=== PATIENT | male | born 1965 | race African-American/Black ===

== ENCOUNTER 2024-06-22 14:51 | Inpatient (IN) | payer OTHER ==
[2024-06-22 15:50] VITALS: BMI 22.1
[2024-06-22] MEDS ORDERED: POLYETHYLENE GLYCOL (HEALTHYLAX) 3350 17 GM PACKET PO PRN (16:48)
[2024-06-22] MEDS ORDERED: guaiFENesin 600 MG TABLET.ER (FP) PO PRN (16:48)
[2024-06-22] MEDS ORDERED: NICOTINE POLACRILEX 2 MG GUM BUC PRN (16:48)
[2024-06-22] MEDS ORDERED: IBUPROFEN 600 MG TABLET (FP) PO PRN (16:48)
[2024-06-22] MEDS ORDERED: ACETAMINOPHEN 325 MG TABLET (FP) PO PRN (16:48)
[2024-06-22] MEDS ORDERED: NALOXONE (NARCAN) HCL 4 MG/0.1 ML SPRAY NS PRN (16:48)
[2024-06-22] MEDS ORDERED: LOPERAMIDE HCL 2 MG CAPSULE PO PRN (16:48)
[2024-06-22] MEDS ORDERED: BENZOCAINE/MENTHOL (CHLORASEPTIC ) LOZENGE MM PRN (16:48)
[2024-06-22] MEDS ORDERED: IBUPROFEN 400 MG TABLET (FP) PO PRN (16:48)
[2024-06-22] MEDS ORDERED: MAGNESIUM HYDROX 2400MG/30ML ORAL SUSPENSION 30 ML CUP PO PRN (16:48)
[2024-06-22] MEDS ORDERED: MAG HYDROX/AL HYDROX/SIMETH 30 ML UNIT-DOSE CUP PO PRN (16:48)
[2024-06-22] MEDS ORDERED: BENZONATATE 200 MG CAPSULE PO PRN (16:48)
[2024-06-22] MEDS: TUBERCULIN PPD 5 TU/0.1ML SYRINGE (IN PATIENT USE ONLY) ID ONE (19:03)
[2024-06-22] MEDS: MELATONIN 5 MG TABLETS PO SCH (22:21)
[2024-06-22] MEDS: THIAMINE 100 MG TABLET PO SCH (22:21)
[2024-06-23] MEDS: NICOTINE 21 MG/24 HOURS TOPICAL PATCH TD SCH (10:37)
[2024-06-23] MEDS: PRENATAL VITAMINS W/ FOLIC ACID TABLET (FP) PO SCH (10:37)
[2024-06-23 12:58] LABS: HEMATOCRIT 38.5 % (35.4-49); MCH 32.3 pg (25.7-33.7); MCHC 33.9 g/dl (32.0-35.9); MEAN CELL VOLUME 95.4 fl (80-96); MEAN PLT VOLUME 8.7 fl (7.5-11.1); PLATELET COUNT 231 10^3/uL (134-434); RBC 4.03 M/mm3 (4.00-5.60); WHITE BLOOD COUNT 4.6 K/mm3 (4.0-10.0)
[2024-06-23 12:59] LABS: CHLORIDE 112 mmol/L (98-107); POTASSIUM 3.9 mmol/L (3.5-5.1); SODIUM 142 mmol/L (136-145)
[2024-06-23 13:07] LABS: EPI CELLS 12 /uL (0-25.1); HYALINE CASTS 12 /uL (0-3.1); URINE APPEARANCE TURBID; URINE BACTERIA 2206 /uL (0-1359); URINE BILIRUBIN NEGATIVE (NEGATIVE); URINE COLOR YELLOW; URINE GLUCOSE (UA) NEGATIVE (NEGATIVE); URINE KETONE NEGATIVE (NEGATIVE); URINE LEUK ESTERASE 2+ (NEGATIVE); URINE NITRITE NEGATIVE (NEGATIVE); URINE PROTEIN TRACE (NEGATIVE); URINE WBC 705 /uL (0-25.8)
[2024-06-23 13:10] LABS: URINE RBC 17 /uL (0-23.9)
[2024-06-23 13:11] LABS: CALCIUM 8.8 mg/dL (8.5-10.1)
[2024-06-23 13:12] LABS: ALBUMIN 3.3 g/dl (3.4-5.0); ANION GAP 6 mmol/L (4-13); BLOOD UREA NITROGEN 11.5 mg/dL (7-18); CO2 25 mmol/L (21-32); GLUCOSE,RANDOM 92 mg/dL (74-106)
[2024-06-23 13:14] LABS: SGPT/ALT 26 U/L (13-61)
[2024-06-23 13:15] LABS: CREATININE 0.8 mg/dL (0.55-1.3); SGOT/AST 17 U/L (15-37)
[2024-06-23 13:16] LABS: BILIRUBIN,TOTAL 0.5 mg/dL (0.2-1); TOT PROT 6.7 g/dl (6.4-8.2)
[2024-06-23 13:17] LABS: ALK PHOS 83 U/L (45-117)
[2024-06-23 13:27] LABS: SYPHILIS W/ RPR CONF REACTIVE (NONREACTIVE)
[2024-06-23] MEDS: hydrOXYzine PAMOATE 25 MG CAPSULE (FP) PO PRN (21:36)
[2024-06-29] MEDS: PETROLATUM, WHITE 30 GM TUBE TP SCH (12:08)
[2024-06-29] MEDS: SULFAMETHOXAZOLE/TRIMETHOPRIM 800MG/160MG D.S. TABLET PO SCH (12:08)
[2024-06-29] MEDS: MELATONIN 5 MG TABLETS PO SCH (21:04)
[2024-07-06 06:44] VITALS: BP 118/65; PULSE 66; RESP 16; TEMP 97.8
[2024-07-06] MEDS: NALOXONE (NYS OPIOID OVERDOSE PROGRAM) 4 MG/0.1 ML SPRAY NS SCH (10:06)
== END 2024-07-06 10:42 | disposition home or self-care (01) | DRG 772 ==
LOC: YASAS 14:51 → Y3NR 17:14 → Y5N 06-25 11:43
PROVIDERS: ADMIT Allergy & Immunology; ATTEND Psychiatry & Neurology Pain Medicine
PROC: HZ42ZZZ Group Counseling for Substance Abuse Treatment, Cognitive-Behavioral (ICD-10-PCS; principal; 2024-06-22)
DX: F14.20 Cocaine dependence, uncomplicated (principal); F10.20 Alcohol dependence, uncomplicated; F17.210 Nicotine dependence, cigarettes, uncomplicated; L85.3 Xerosis cutis; N39.0 Urinary tract infection, site not specified
CPT/HCPCS: 36415; 80053; 80305; 80307; 81003; 85027; 86593; 86780; 86803; 87811; 93005; 93010

== ENCOUNTER 2025-03-16 13:12 | Inpatient (IN) | payer OTHER ==
[2025-03-16 13:43] VITALS: BMI 22.6
[2025-03-16] MEDS ORDERED: IBUPROFEN 400 MG TABLET (FP) PO PRN (15:35)
[2025-03-16] MEDS ORDERED: guaiFENesin 600 MG TABLET.ER (FP) PO PRN (15:35)
[2025-03-16] MEDS ORDERED: BENZONATATE 200 MG CAPSULE PO PRN (15:35)
[2025-03-16] MEDS ORDERED: NALOXONE (NARCAN) HCL 4 MG/0.1 ML SPRAY NS PRN (15:35)
[2025-03-16] MEDS ORDERED: BENZOCAINE/MENTHOL (CHLORASEPTIC ) LOZENGE MM PRN (15:35)
[2025-03-16] MEDS ORDERED: IBUPROFEN 600 MG TABLET (FP) PO PRN (15:35)
[2025-03-16] MEDS ORDERED: ACETAMINOPHEN 325 MG TABLET (FP) PO PRN (15:35)
[2025-03-16] MEDS ORDERED: POLYETHYLENE GLYCOL (HEALTHYLAX) 3350 17 GM PACKET PO PRN (15:35)
[2025-03-16] MEDS ORDERED: LOPERAMIDE HCL 2 MG CAPSULE PO PRN (15:35)
[2025-03-16] MEDS ORDERED: MAGNESIUM HYDROX 2400MG/30ML ORAL SUSPENSION 30 ML CUP PO PRN (15:35)
[2025-03-16] MEDS ORDERED: NICOTINE POLACRILEX 2 MG GUM BUC PRN (15:35)
[2025-03-16] MEDS ORDERED: MAG HYDROX/AL HYDROX/SIMETH 30 ML UNIT-DOSE CUP PO PRN (15:35)
[2025-03-16] MEDS ORDERED: NICOTINE POLACRILEX 2 MG LOZENGE BC PRN (15:35)
[2025-03-16] MEDS: MELATONIN 5 MG TABLETS PO SCH (22:28)
[2025-03-16] MEDS: THIAMINE 100 MG TABLET PO SCH (22:28)
[2025-03-17] MEDS: PRENATAL VITAMINS W/ FOLIC ACID TABLET (FP) PO SCH (09:07)
[2025-03-17 09:42] LABS: MCHC 32.6 g/dl (32.3-36.5); MEAN CELL VOLUME 96.5 fl (79.0-92.2); MEAN PLT VOLUME 10.2 fl (9.4-12.4); RDW 13.0 % (12.2-16.1)
[2025-03-17 10:10] LABS: GLUCOSE,RANDOM 98.0 mg/dL (74-106); TOT PROT 6.5 g/dl (6.4-8.2)
[2025-03-17 10:11] LABS: CO2 26.0 mmol/L (21-32)
[2025-03-17 10:13] LABS: ALK PHOS 86.0 U/L (40-150)
[2025-03-17 10:16] LABS: CREATININE 0.79 mg/dL (0.55-1.3); SGOT/AST 19.0 U/L (5-34); SGPT/ALT 21.0 U/L (0-55)
[2025-03-20] MEDS: amLODIPine BESYLATE 5 MG TABLET (FP) PO SCH (17:39)
[2025-03-20] MEDS: ASPIRIN COATED 81 MG TABLET.EC PO SCH (17:39)
[2025-03-20 18:27] LABS: URINE APPEARANCE CLEAR; URINE BILIRUBIN NEGATIVE (NEGATIVE); URINE COLOR YELLOW; URINE GLUCOSE (UA) NEGATIVE (NEGATIVE); URINE KETONE NEGATIVE (NEGATIVE); URINE LEUK ESTERASE NEGATIVE (NEGATIVE); URINE NITRITE NEGATIVE (NEGATIVE); URINE PROTEIN NEGATIVE (NEGATIVE); URINE UROBILINOGEN 0.2 mg/dL (0.2-1.0)
[2025-03-20] MEDS: hydrOXYzine PAMOATE 25 MG CAPSULE (FP) PO PRN (21:13)
[2025-03-20] MEDS: LIDOCAINE PATCH REMOVAL MC SCH (21:15)
[2025-03-21] MEDS: LIDOCAINE 5% TOPICAL PATCH TP SCH (10:09)
[2025-03-24] MEDS: amLODIPine BESYLATE 2.5 MG TABLET (FP) PO SCH (09:36)
[2025-03-27] MEDS ORDERED: HYDROCORTISONE 1% TOPICAL CREAM 30 GM TUBE TP PRN (14:00)
[2025-03-27] MEDS: BACLOFEN 10 MG TABLET (FP) PO SCH (14:14)
[2025-03-27] MEDS: MELATONIN 5 MG TABLETS PO SCH (21:33)
[2025-04-03] MEDS: BACLOFEN 10 MG TABLET (FP) PO SCH (13:15)
[2025-04-03] MEDS: MIRTAZAPINE 15 MG TABLET (FP) PO SCH (21:13)
[2025-04-09 06:38] VITALS: TEMP 97.9
[2025-04-09 08:43] VITALS: RESP 17
[2025-04-10 08:52] VITALS: BP 135/85; PULSE 76
== END 2025-04-10 10:57 | disposition home or self-care (01) | DRG 772 ==
LOC: YASAS 13:12 → Y3NR 16:43 → Y3E 03-19 12:41
PROVIDERS: ADMIT Neuromusculoskeletal Medicine & OMM; ATTEND Psychiatry & Neurology Pain Medicine
PROC: HZ42ZZZ Group Counseling for Substance Abuse Treatment, Cognitive-Behavioral (ICD-10-PCS; principal; 2025-03-16)
DX: F14.20 Cocaine dependence, uncomplicated (principal); F10.10 Alcohol abuse, uncomplicated; F12.20 Cannabis dependence, uncomplicated; F17.210 Nicotine dependence, cigarettes, uncomplicated; F19.24 Other psychoactive substance dependence with psychoactive substance-induced mood disorder; M25.511 Pain in right shoulder; G89.29 Other chronic pain; R21 Rash and other nonspecific skin eruption; R26.89 Other abnormalities of gait and mobility
CPT/HCPCS: 36415; 80053; 81003; 85027; 86780; J0475